=== PATIENT | male | born 1975 | race Caucasian/White ===

== ENCOUNTER 2021-01-20 13:17 | Emergency (ER) | payer OTHER, SELFPAY ==
[2021-01-20 13:25] VITALS: BP 148/86; PULSE 82; RESP 24; TEMP 36.8; O2SAT 97; BMI 40.6
--- NOTE | 2021-01-20 13:46 | ED_ITS ---
HPI - Back Pain/Injury General: Chief Complaint: Back Pain/Injury Stated Complaint: BACK PAIN Time Seen by Provider: 01/20/21 13:46 Source: patient and EMS Mode of arrival: EMS Limitations: no limitations History of Present Illness: HPI Narrative: Patient is a nice 45-year-old male who presents to ED today with a complaint of severe lower back pain. Patient tells me he was in the shower when he accidentally slipped. He states he caught himself but immediately noticed pain in his lower back. There was no direct injury or trauma. Patient denies any radiation into his lower extremities. He is denying saddle anesthesia. He is not having any issues with urinary retention or bowel incontinence. Patient with a prior history of a lumbar discectomy several years ago. MD elicited complaint: back pain Pertinent past history: prior back pain Onset (ago): hour(s) Timing: constant Severity: severe Quality: sharp Location: lumbar spine Radiation: none Exacerbating factors: movement, sitting upright, walking, coughing/sneezing and lifting Relieving factors: immobilization Associated symptoms: Reports no associated symptoms; Deny abdominal pain, fever(s), nausea or vomiting Work related injury: No Review of Systems Const: Denies: fever(s) Card: Denies: chest pain Resp: Denies: dyspnea GI: Denies: abdominal pain, nausea or vomiting : Denies: flank pain, difficulty urinating, urinary hesitancy, urinary dribbling, change in urine stream or genital pain Musc: Reports: back pain; Denies: neck pain, extremity pain, extremity swelling, joint pain or joint swelling Neuro: Denies: headache(s), numbness in extremities, weakness in extremities, sensory changes or frequent falls Physical Exam Const: COMMON NORMALS: no acute distress, patient oriented x3, no limitations and alert GENERAL APPEARANCE: cooperative NUTRITIONAL APPEARANCE: obese ORIENTATION/CONSCIOUSNESS: Yes awake, Yes oriented to person, Yes oriented to place and Yes oriented to time Back/Pelvis: THORACIC SPINE/UPPER BACK: Yes normal to inspection LUMBAR SPINE/LOWER BACK: Yes normal to inspection, Yes ROM limited, Yes pain with ROM, Yes lumbar spinal tenderness Lumbar spinal tenderness location: L4 and L5 and No paraspinal muscle tenderness Neuro: COMMON NORMALS: patient oriented x3, moves all extremities, no focal motor deficits and no sensory deficits noted SENSORIUM/ORIENTATION: Yes alert, Yes oriented to person, Yes oriented to place and Yes oriented to time GAIT: Yes Unable to assess gait Skin: COMMON NORMALS: no rashes or lesions noted GENERAL SKIN EXAM: no rashes or lesions noted Course Vital Signs: Vital signs: Vital Signs Temperature 98.3 F 01/20/21 13:25 Pulse Rate 62 01/20/21 15:32 Respiratory Rate 14 01/20/21 15:32 Blood Pressure 116/75 01/20/21 15:32 Pulse Oximetry 100 01/20/21 15:32 MDM - Back Pain/Injury MDM Narrative: Medical decision making narrative: Patient has no acute neurological complaints or deficits on his exam. After IV meds he is walking around in his room without difficulty. He states he will follow up with PCP in [place] ([place] is in town [place] [employer]) to get outpatient imaging if indicated. Return to ED precautions given. Discharge Plan Discharge Patient Disposition: Home Clinical Impression: Severe low back pain Condition: Stable Prescriptions: New cyclobenzaprine 10 mg tablet 10 mg PO TID Qty: 14 RF: 0 prednisone 10 mg tablet 60 mg PO DAILY 5 Days Qty: 30 RF: 0 ibuprofen 800 mg tablet 800 mg PO Q8H PRN (Reason: pain) Qty: 20 RF: 0 hydrocodone-acetaminophen 5-325 mg tablet 1 tab PO Q4H PRN (Reason: pain) Qty: 20 RF: 0 Discharge Orders: Discharge ED (Routine); Ordered 01/20/21 Ordered By: Татьяна Martin Patient Instructions: Opioid Safety Activity Restrictions/Additional Instructions: [facility] is committed to fighting the nationwide opiate epidemic. We are providing ALL patients with information regarding opiate safety. If you rec eived opiate pain medication during your stay or if you received a prescription for opiate pain medication-please review this handout. If not, you may disregard. Thank you. As discussed please follow-up with your primary care provider soon as possible. You may return to our emergency department for severe worsening back pain, difficulty urinating, incontinence of bowels, numbness/tingling to your genitals or pelvis, or any other concerns you may have. Coding Level of Care Code ED Vice President Of [employer] for Shweta Pratt
[2021-01-20 13:51] VITALS: BP 148/86; PULSE 82; RESP 16; O2SAT 97
[2021-01-20] MEDS: ketorolac 30 mg/mL INJ IVP (14:17)
[2021-01-20] MEDS: dexamethasone 4 mg/mL INJ 8 MG IVP (14:18)
[2021-01-20] MEDS: orphenadrine 30 mg/mL Inj 2 mL 60 MG IVP (14:19)
[2021-01-20 15:09] VITALS: RESP 17
[2021-01-20] MEDS: HYDROmorphone 1 mg/mL INJ 1 mL IVP (15:09)
[2021-01-20 15:32] VITALS: BP 116/75; PULSE 62; RESP 14; O2SAT 100
== END 2021-01-20 15:53 | disposition home or self-care (01) ==
PROVIDERS: Emergency Provider Physician Assistant
DX: M54.5 Low back pain (principal)
CPT/HCPCS: 96374; 96375; 99284; J1100; J1170; J1885; J2360